=== PATIENT | male | born 1995 | race Hispanic/Latino ===

== ENCOUNTER → 2017-07-18 | Day surgery (SDC) | payer OTHER ==
[~2017-07-18] MED LIST: ACETAMINOPHEN 1000 MG/100 ML IV ONE; BUPIVACAINE 0.25% 30ML SDV INJ ONE; CITALOPRAM HBR20 MG PO; DEXAMETHASONE SOD PHOS INJ 4 MG/ML VIAL ONE; FENTANYL CITRATE/PF 100MCG/2 ML INJ ONE; GLYCOPYRROLATE INJ 1MG/ 5 ML SYR ONE; LIDOCAINE HCL 2% LOCAL INJ 5 ML SDV VIAL INJ ONE; MIDAZOLAM HCL 2 MG/2 ML VIAL ONE; NEOSTIGMINE 5 MG/5ML SYR ONE; OXYMETAZOLINE HCL 0.05% NAS 1 SPRAY BTL ONE; PROPOFOL IV EMULSION 10 MG/ML 20 ML VIAL ONE; ROCURONIUM BROMIDE 10 MG/ML 5ML VIAL ONE; SEVOFLURANE INHAL SOLN 250 ML PEN BTL ONE; SILVER NITRATE SWABS ONE
--- NOTE | 2017-07-18 12:30 | Operative Report ---
DATE OF PROCEDURE: July 18, 2017 PREOPERATIVE DIAGNOSES 1. Obstructive sleep apnea. 2. Adenotonsillar hypertrophy. 3. Chronic nasal obstruction. 4. Epistaxis. POSTOPERATIVE DIAGNOSES 1. Obstructive sleep apnea. 2. Adenotonsillar hypertrophy. 3. Chronic nasal obstruction. 4. Epistaxis. PROCEDURES 1. Tonsillectomy. 2. Adenoidectomy. 3. Comprehensive nasal endoscopy. 4. Silver nitrate cautery of left-sided anterior epistaxis. SIGNIFICANT FINDINGS: Enlarged tonsils and adenoids. Increased vascularity involving the anterior septal mucosa, worse on the left. ANESTHESIA: General endotracheal tube anesthesia. ESTIMATED BLOOD LOSS: Less than 1 mL. SPECIMENS REMOVED: Tonsils (adenoids were coblated). INDICATIONS: The patient is a 21-year-old male with a 5-year history of loud snoring, gasping for air, and apnea during sleep. His sleep is nonrestorative, and he has daytime somnolence. He also has chronic nasal obstruction. Home sleep study in the past revealed obstructive sleep apnea. The patient has anterior epistaxis, worse on the left side. On examination, his tonsils are 3 to 4+ over 3 to 4+. He has increased vascularity involving the septal mucosa anteriorly, worse on the left side. He is scheduled for tonsillectomy and adenoidectomy for the treatment of obstructive sleep apnea, adenotonsillar hypertrophy, and chronic nasal obstruction as well as comprehensive nasal endoscopy and operative control of epistaxis. The risks and complications of the procedures were thoroughly discussed with the patient, and they include: Infection; bleeding; scarring; failure to improve; need for additional operations; persistent nose bleeding; persistent sleeping issues with snoring, gasping for air, and apneas during sleep; damage to teeth, gums, tongue and lips; chronic pain; voice changes; numbness of the tongue; inability to taste; leakage of fluid through the nose when drinking liquids; scarring of the pharynx resulting in permanent worse nasal obstruction; damage to the eustachian tube orifices causing middle ear fluid and hearing loss; need for blood transfusion; damage to surrounding nerves, blood vessels and muscles. He fully understands and gives consent. PROCEDURE: The patient was taken to the operating room and placed supine on the operating table, where general anesthesia was achieved through orotracheal intubation. Eyes were taped. A shoulder roll was placed. The head and body were draped. The table was turned 90 degrees, with the head towards the surgeon. A Melani-Jakob mouth gag was inserted without difficulty and placed in suspension on the Torres stand. There was no evidence of bifid uvula, diastasis of the musculus uvulae, or notched hard palate. Red rubber catheters were then inserted into the nose and brought out through the mouth to retract the soft palate. The tonsils were extremely enlarged. They were 3 to 4+ over 3 to 4+. The left tonsil was grasped with a tonsillar Allis clamp and was removed with the ArthroCare Coblator on a setting of 6 on cut mode, taking care to stay right on the capsule of the tonsil. The right tonsil was removed in the same way. Hemostasis was obtained with the coblator on a setting of 3 on coag mode on both tonsillar beds. Following this, the adenoids were visualized with a laryngeal mirror and were seen to be moderately hypertrophied. They were removed with the ArthroCare Coblator on the setting of 8 on cut mode, taking care to avoid trauma to the torus tubarius bilaterally. Hemostasis was obtained with the Coblator on a setting of 3 on coag mode. Following this, injection with 3 mL of 0.25% plain Marcaine was injected into the free edges of the anterior and posterior tonsillar pillars bilaterally. Thorough irrigation was then performed. Stomach contents were suctioned with an NG tube. The red rubber catheter and [place]-Jakob mouth gag were then removed without difficulty, revealing no trauma to the teeth, gums, tongue and lips. Following this, attention was then directed to his nose. The nose was decongested with topical Afrin on pledgets bilaterally, which were then removed. Comprehensive nasal endoscopy revealed diffuse mucosal inflammation and edema as well as septal deviation. There was no evidence of purulence, polyps or masses. There was increased vascularity involving the anterior septal mucosa (Kiesselbach's plexus), worse on the left side. The left side was cauterized with silver nitrate cautery. The patient was awakened in the operating room, extubated, and taken to the recovery room in good condition. TONIA BENNETT M.D. Job#: [id number] CECILIO BRADFORD
== END | disposition home or self-care (01) ==
LOC: OR 05:49
PROVIDERS: ATTEND Otolaryngology
DX: J35.3 Hypertrophy of tonsils with hypertrophy of adenoids (principal); R04.0 Epistaxis; J34.2 Deviated nasal septum; J34.89 Other specified disorders of nose and nasal sinuses; G47.33 Obstructive sleep apnea (adult) (pediatric); F32.9 Major depressive disorder, single episode, unspecified; F41.9 Anxiety disorder, unspecified; K76.0 Fatty (change of) liver, not elsewhere classified
CPT/HCPCS: 31238; 42821; 88304; J1100; J2001; J2250